=== PATIENT | male | born 1980 | race Two or more races ===

== ENCOUNTER 2017-08-24 09:16 | Emergency (ER) | payer BC, OTHER ==
[2017-08-24] MEDS ORDERED: Ketorolac 60 MG/2 ML SDV IM ONE (09:22)
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
--- NOTE | 2017-08-24 10:15 | CT ---
EXAMINATION: CT cervical spine HISTORY: Pain COMPARISON: None TECHNIQUE: Continuous axial CT imaging obtained through the cervical spine without contrast. Coronal and sagittal reconstructions obtained. FINDINGS: There is levocurvature of the upper cervical spine with fusion of the C2, C3, and C4 verteb ral bodies and facets. There is neural foraminal narrowing on the left at C2-C3 and C3-C4, likely con genital. There is enlargement of the cisterna magna without visualization of the cerebellar vermis. T here is no fracture or acute osseous abnormality demonstrated. Bone mineralization is normal. Multipl e nonpathologically enlarged cervical chain lymph nodes noted. Lung apices are clear. IMPRESSION: 1. No acute cervical spinal abnormality identified. 2. 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 3. 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
--- NOTE | 2017-08-24 10:35 | CT ---
EXAMINATION: CT lumbar spine HISTORY: Pain COMPARISON: None TECHNIQUE: Axial CT images obtained through the lumbar spine without contrast. Coronal and sagittal r econstructions obtained. FINDINGS: The lumbar spinal alignment is normal. The vertebral body heights and disc spaces appear well-maintai avery. There is no abnormal bone marrow signal. There is sacralization of L5 bilaterally. No fracture o r acute osseous abnormality. Bone mineralization is normal. SI joints are symmetric. Visualized retro peritoneal structures appear normal. IMPRESSION: No acute osseous abnormality identified.
[2017-08-24 10:59] VITALS: BP 138/92
== END 2017-08-24 10:55 | disposition home or self-care (01) ==
LOC: MW.ED 09:16
DX: S16.1XXA Strain of muscle, fascia and tendon at neck level, initial encounter (principal); S39.012A Strain of muscle, fascia and tendon of lower back, initial encounter; Z87.891 Personal history of nicotine dependence; V43.62XA Car passenger injured in collision with other type car in traffic accident, initial encounter
CPT/HCPCS: 72125; 72131; 96372; 99284; J1885